=== PATIENT | female | born 1985 | race Caucasian/White ===

== ENCOUNTER → 2019-05-11 | Outpatient (REF) | payer BC ==
[~2019-05-11] MED LIST: ASPI81TA26 PO; PREN200C PO; PROBCAP14 PO; [UNRECOGNIZED DRUG - CODE] PO
== END ==
LOC: M LAB LCGH 12:03
PROVIDERS: ATTEND Obstetrics & Gynecology
DX: Z12.4 Encounter for screening for malignant neoplasm of cervix (principal)